=== PATIENT | male | born 1955 | race Caucasian/White ===

== ENCOUNTER 2022-05-25 14:26 | Emergency (ER) | payer MEDICARE ==
[~2022-05-25] VITALS: Ht 170.2 cm; Wt 70.0 kg
[2022-05-25 16:00] LABS: COLLECTION METHOD CLEAN CATCH
[2022-05-25 16:02] LABS: BASO % 0.1 % (0.0-2.0); EOS # 0.1 K/mm3 (0.0-0.7); EOS % 0.8 % (0.0-4.0); GRAN # 7.5 K/mm3 (1.4-6.5); HEMOGLOBIN 11.6 g/dl (13.5-18.0); LYMPH # 0.8 K/mm3 (1.2-3.4); LYMPH % 8.7 % (20.0-51.0); MEAN CELL VOLUME 88 fl (80.0-100.0); MEAN CORPUSCULAR HEMOGLOBIN 28 pg (27-31); MEAN CORPUSCULAR HGB CONC 32 g/dl (33.0-37.0); MEAN PLATELET VOLUME 11.3 fl (7.4-10.4); MONO # 0.7 K/mm3 (0.1-0.6); MONO % 8.1 % (1.7-9.3); PLATELET COUNT 164 K/mm3 (130-400); RED BLOOD COUNT 4.18 M/mm3 (4.20-5.60); REDCELL DISTRIBUTION WIDTH-CV 13.8 % (11.5-14.5)
[2022-05-25 16:05] LABS: HEMATOCRIT 36.6 % (42.0-52.0)
[2022-05-25 16:12] LABS: MUCOUS Present (NOT PRESENT); SQUAMOUS EPITHELIAL None Seen /hpf (0-10); URINE BACTERIA None Seen /hpf (NONE SEEN); URINE RBC >50 /hpf (0-2)
[2022-05-25 16:13] LABS: PH 5.5 (5-8); URINE APPEARANCE Cloudy (CLEAR/HAZY); URINE BLOOD 3+ (NEGATIVE); URINE COLOR Yellow (YELLOW); URINE GLUCOSE Negative (NEGATIVE); URINE KETONE TRACE (NEGATIVE); URINE NITRATE Negative (NEGATIVE); URINE PROTEIN(semi-quant) 3+ (NEGATIVE); URINE UROBILINOGEN 0.2 (NEGATIVE)
[2022-05-25 16:19] LABS: BILIRUBIN,TOTAL 0.6 mg/dL (0.2-1.2); CALCIUM 8.4 mg/dL (8.4-10.2); CREATININE, serum 3.03 mg/dL (0.72-1.25); POTASSIUM 4.5 mmol/L (3.5-4.5); TOTAL PROTEIN 5.2 gm/dL (6.2-8.1)
[2022-05-25] MEDS ORDERED: CEPHALEXIN500 M1 PO (18:04)
[2022-05-25 18:11] VITALS: BP 123/75; PULSE 57; TEMP 97.9
== END 2022-05-25 18:12 | disposition home or self-care (01) ==
LOC: COL.ER 14:26
PROVIDERS: Emergency Medicine
DX: N39.0 Urinary tract infection, site not specified (principal); N18.9 Chronic kidney disease, unspecified; D63.1 Anemia in chronic kidney disease; N21.0 Calculus in bladder
CPT/HCPCS: J0696; J7120

== ENCOUNTER 2022-06-25 10:25 | Emergency (ER) | payer MEDICARE ==
[~2022-06-25] VITALS: Ht 170.2 cm; Wt 66.8 kg
[~2022-06-25 10:25] MED LIST: CEPHALEXIN500 M1 PO
[2022-06-25 11:19] LABS: BASO % 0.1 % (0.0-2.0); EOS # 0.1 K/mm3 (0.0-0.7); EOS % 1.1 % (0.0-4.0); GRAN # 8.8 K/mm3 (1.4-6.5); GRAN % 84.8 % (42.2-75.2); HEMOGLOBIN 11.2 g/dl (13.5-18.0); LYMPH # 0.8 K/mm3 (1.2-3.4); MEAN CELL VOLUME 86 fl (80.0-100.0); MEAN CORPUSCULAR HEMOGLOBIN 28 pg (27-31); MEAN CORPUSCULAR HGB CONC 33 g/dl (33.0-37.0); MEAN PLATELET VOLUME 10.6 fl (7.4-10.4); MONO # 0.6 K/mm3 (0.1-0.6); MONO % 5.6 % (1.7-9.3); PLATELET COUNT 178 K/mm3 (130-400); RED BLOOD COUNT 3.96 M/mm3 (4.20-5.60); REDCELL DISTRIBUTION WIDTH-CV 13.5 % (11.5-14.5)
[2022-06-25 11:22] LABS: HEMATOCRIT 34.1 % (42.0-52.0)
[2022-06-25 11:37] LABS: BILIRUBIN,TOTAL 0.5 mg/dL (0.2-1.2); CALCIUM 8.4 mg/dL (8.4-10.2); CREATININE, serum 2.1 mg/dL (0.72-1.25); POTASSIUM 4.8 mmol/L (3.5-4.5); TOTAL PROTEIN 5.4 gm/dL (6.2-8.1)
[2022-06-25 11:43] LABS: TROPONIN-I 0.024 ng/mL (0.00-0.033)
[2022-06-25 14:56] VITALS: BP 129/76; PULSE 80
== END 2022-06-25 14:56 | disposition home or self-care (01) ==
LOC: COL.ER 10:25
PROVIDERS: Emergency Medicine
DX: R00.1 Bradycardia, unspecified (principal); R55 Syncope and collapse; R79.89 Other specified abnormal findings of blood chemistry
CPT/HCPCS: J0461

== ENCOUNTER 2022-12-25 10:36 | Day surgery (SDC) | payer MEDICARE ==
[~2022-12-25] VITALS: Ht 170.2 cm; Wt 68.9 kg
[2022-12-25 11:21] VITALS: BP 145/82; PULSE 58; TEMP 97.9
[2022-12-25 11:25] LABS: HEMOGLOBIN 11.5 g/dl (13.5-18.0); MEAN CELL VOLUME 87 fl (80.0-100.0); MEAN CORPUSCULAR HEMOGLOBIN 27 pg (27-31); MEAN CORPUSCULAR HGB CONC 32 g/dl (33.0-37.0); MEAN PLATELET VOLUME 11.1 fl (7.4-10.4); PLATELET COUNT 143 K/mm3 (130-400); RED BLOOD COUNT 4.21 M/mm3 (4.20-5.60); REDCELL DISTRIBUTION WIDTH-CV 14.2 % (11.5-14.5)
[2022-12-25 11:29] LABS: HEMATOCRIT 36.4 % (42.0-52.0)
[2022-12-25 11:36] LABS: INR 1.1 (0.8-3.0)
[2022-12-25 11:39] LABS: CALCIUM 9.4 mg/dL (8.4-10.2); CREATININE, serum 2.1 mg/dL (0.72-1.25); POTASSIUM 4.5 mmol/L (3.5-4.5)
[2022-12-25] MEDS ORDERED: FLOMAX 0.40.4 MG/CAP PO (12:14)
[2022-12-25] MEDS ORDERED: COREG12.5 MG PO (12:15)
[2022-12-25] MEDS ORDERED: NORVASC 10MG10 MG PO (12:15)
[2022-12-25] MEDS ORDERED: LIPITOR 40MG TA40 MG PO (12:15)
[2022-12-25] MEDS ORDERED: JANUVIA25 MG PO (12:16)
[2022-12-25] MEDS ORDERED: ADMELOG SO100 UNIT/1 SQ (12:16)
[2022-12-25] MEDS ORDERED: LANTUS SOLOS100 U/ML SQ (12:16)
[2022-12-25] MEDS ORDERED: PEPCID 20MG TAB20 MG PO (12:17)
[2022-12-25] MEDS ORDERED: ASPIRIN 81M81 MG/TA2 PO (12:17)
[2022-12-25] MEDS ORDERED: ZOFRAN 4MG T4 MG/TAB PO (12:18)
[2022-12-25 15:00] VITALS: BP 139/70; PULSE 60
[2022-12-25 15:15] VITALS: BP 137/78; PULSE 54
[2022-12-25 15:30] VITALS: BP 140/81; PULSE 52
[2022-12-25 15:45] VITALS: BP 146/71; PULSE 56
--- NOTE | 2022-12-25 17:15 | NUR ---
pt tolerated recovery well. vs remained within pt's normal limits and pt remained free from acute complaints or concerns. pt tolerated po food and fluid during recovery and voided prior to discharge. IV was discontinued and pt was assisted to main lobby via wheelchair and was accompanied by . pt verbalized understanding of discharge instructions.
== END 2022-12-25 16:20 | disposition home or self-care (01) ==
LOC: COL.CAR 10:36
PROVIDERS: Internal Medicine Interventional Cardiology
DX: I95.89 Other hypotension (principal); I34.0 Nonrheumatic mitral (valve) insufficiency; I65.21 Occlusion and stenosis of right carotid artery; I10 Essential (primary) hypertension; I25.10 Atherosclerotic heart disease of native coronary artery without angina pectoris; R00.1 Bradycardia, unspecified; Z79.82 Long term (current) use of aspirin; Z79.1 Long term (current) use of non-steroidal anti-inflammatories (NSAID); Z95.1 Presence of aortocoronary bypass graft
CPT/HCPCS: J2704